=== PATIENT | female | born 2000 | race Two or more races ===

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

== ENCOUNTER 2018-01-12 18:19 | Emergency (ER) | payer MEDICAID | END 2018-01-12 20:16 | disposition left against medical advice (07) | LOC: ER 18:19 | DX: Z53.21 Procedure and treatment not carried out due to patient leaving prior to being seen by health care provider (principal) ==

== ENCOUNTER 2018-06-10 17:32 | Emergency (ER) | payer MEDICAID ==
[2018-06-10 17:39] VITALS: BP 117/71
--- NOTE | 2018-06-10 19:56 | ER Document Report ---
ED GI Bleed / Rectal Pain - General Chief Complaint: Hemorrhoids Stated Complaint: ANAL BLEEDING, PAIN Time Seen by Provider: 06/10/18 19:28 Mode of Arrival: Ambulatory Information source: Patient Notes: 17-year-old female presented to ED for complaint of rectal pain and hemorrhoids. She states she has had hemorrhoids since she was a senior in high school and she came while she was and they told her that they could not do anything about her hemorrhoids while she was . She states that the last couple days her hemorrhoid is gotten worse and she had some blood when she went to the bathroom. Patient is also on her period. She states she does have hard round balls of stools at times. She is alert and oriented respirations regular and unlabored speaking on full sentences and walks with a even steady gait. Patient states she smokes 3-4 times a day and when I asked her to 73 or 4 cigarettes that she states no she does not smoke cigarettes she smokes pot. TRAVEL OUTSIDE OF THE [place] IN LAST 30 DAYS: No - HPI Patient complains to provider of: Hemorrhoids, Rectal pain Onset: Other - Since she was in high school Timing/Duration: Worse Quality of pain: Sharp Severity of symptoms: Moderate Pain Level: 4 Rectal bleeding: Bright red blood on paper - She is on her menstrual cycle Associated symptoms: None Exacerbated by: Other - Bowel movement Relieved by: Denies Similar symptoms previously: Yes Recently seen / treated by doctor: No - Related Data Allergies/Adverse Reactions: No Known Allergies Allergy (Verified 01/12/18 18:28) Past Medical History - General Information source: Patient - Social History Smoking Status: Never Smoker Chew tobacco use (# tins/day): No Frequency of alcohol use: None Drug Abuse: Marijuana - 3 or 4 times a day Occupation: none Lives with: Family - Brother and [id number] Family History: Reviewed & Not Pertinent Patient has suicidal ideation: No Patient has homicidal ideation: No - Past Medical History Cardiac Medical History: Reports: None Pulmonary Medical History: Reports: None EENT Medical History: Reports: None Neurological Medical History: Reports: None Endocrine Medical History: Reports: None Renal/ Medical History: Reports: None Malignancy Medical History: Reports: None GI Medical History: Reports: None Musculoskeletal Medical History: Reports None Skin Medical History: Reports None Psychiatric Medical History: Reports: None Traumatic Medical History: Reports: None Infectious Medical History: Reports: None Surgical Hx: Negative Past Surgical History: Reports: None - Immunizations Immunizations up to date: Yes Review of Systems - Review of Systems Constitutional: No symptoms reported EENT: No symptoms reported Cardiovascular: No symptoms reported Respiratory: No symptoms reported Gastrointestinal: Constipation, Other - Rectal pain and hemorrhoids Genitourinary: No symptoms reported Female Genitourinary: No symptoms reported Musculoskeletal: No symptoms reported Skin: No symptoms reported Hematologic/Lymphatic: No symptoms reported Neurological/Psychological: No symptoms reported -: Yes All other systems reviewed and negative Physical Exam - Vital signs Vitals: Temp Pulse Resp BP Pulse Ox 98.3 F 58 L 16 117/71 98 06/10/18 17:38 06/10/18 17:38 06/10/18 17:38 06/10/18 17:38 06/10/18 17:38 Interpretation: Normal - General General appearance: Appears well, Alert - HEENT Head: Normocephalic, Atraumatic Eyes: Normal Pupils: PERRL - Respiratory Respiratory status: No respiratory distress Chest status: Nontender Breath sounds: Normal Chest palpation: Normal - Cardiovascular Rhythm: Regular Heart sounds: Normal auscultation Murmur: No - Abdominal Inspection: Normal Distension: No distension Bowel sounds: Normal Tenderness: Nontender Organomegaly: No organomegaly - Rectal Tenderness: Yes Hemorrhoids: External - Very small external hemorrhoid Notes: Patient is on her menstrual cycle - Back Back: Normal, Nontender - Extremities General upper extremity: Normal inspection, Nontender, Normal color, Normal ROM , Normal temperature General lower extremity: Normal inspection, Nontender, Normal color, Normal ROM , Normal temperature, Normal weight bearing. No: Kelsey's sign - Neurological Neuro grossly intact: Yes Cognition: Normal Orientation: AAOx4 [place] Coma Scale Eye Opening: Spontaneous [place] Coma Scale Verbal: Oriented Alexia Coma Scale Motor: Obeys Commands Eden Coma Scale Total: 15 Speech: Normal Motor strength normal: LUE, RUE, LLE, RLE Sensory: Normal - Psychological Associated symptoms: Normal affect, Normal mood - Skin Skin Temperature: Warm Skin Moisture: Dry Skin Color: Normal Course - Re-evaluation Re-evalutation: 06/10/18 20:15 Patient states she has a hard round balls for stools. She does have an external hemorrhoid that is very small no internal hemorrhoids palpated. No blood noted on the internal rectum but there is blood externally but the patient is on her menstrual cycle. Patient instructed on use of stool softeners and laxatives to prevent hard stools and to follow-up with her primary doctor and a rug dry room attendant. - Vital Signs Vital signs: Temp Pulse Resp BP Pulse Ox 98.3 F 58 L 16 117/71 98 06/10/18 17:38 06/10/18 17:38 06/10/18 17:38 06/10/18 17:38 06/10/18 17:38 Discharge - Discharge Clinical Impression: External hemorrhoid Condition: Stable Disposition: HOME, SELF-CARE Instructions: Family Physicians / Practices Additional Instructions: Hemorrhoids You have hemorrhoids. These are formed by enlargement of veins around the anus. The cause is increased pressure in the veins, from or straining at bowel movements. Hemorrhoids often cause itching and bleeding with bowel movements. When a hemorrhoid becomes clotted, severe pain and swelling result. Soothing creams and suppositories are often prescribed. Warm sitz-baths may also decrease pain, swelling, and itching. Eat a high-fiber diet. Stool softeners such as Metamucil will help. Keep the area very clean. Medicated cleansing pads (such as Tucks) are useful after bowel movements. A hose-mounted shower unit (like a shower massager at low water pressure) can be used to clean around tender hemorrhoid tags. You should call the doctor or return if you develop fever, increasing pain , or an enlarging mass around the anus, or if you simply fail to improve with treatment. CONSTIPATION: Constipation is a common problem. It is especially likely as you get older. Constipation is a common cause of abdominal pain, but sometimes causes no symptoms at all. Causes of constipation include certain medications, dehydration, diets, inactivity, and low-fiber intake. Rarely, it can be a symptom of underlying disease. The physician has evaluated you for this. Avoid constipation by eating a diet high in fiber, fruits, and vegetables. Drink plenty of liquids. Get regular exercise. If possible, avoid constipating medicines like narcotic pain medication. Some vitamin tablets can cause constipation. Stool softeners may be needed for difficult cases. An excellent stool softener is Konsyl which is available at [employer], and [employer] drug [employer]. Just add a teaspoon to a glass of pineapple or orange juice daily or twice a day if needed. Laxatives are useful for occasional constipation. You should use them only when necessary. Too-frequent use can make your bowels dependent on them. Some over the counter laxatives available without prescription are: Milk of Magnesia, 1-2 tablespoons twice a day Dulcolax, 5 mg pill or 10 mg suppository. Citrate of Magnesia, 4-5 ounces a day for a day or two For acute constipation, Fleet's Enemas and Dulcolax suppositories are helpful. Chronic, care home use of laxatives or enemas is not a good idea. Your bowel may become dependant on them. You do not need to have a bowel movement every day. Many people do fine with a bowel movement every three or four days. You should call your doctor or return for re-evaluation if you pass blood in the stool, or if you develop fever or increasing abdominal pain. BULK LAXATIVES: Bulk laxatives make the stool softer and bulkier. They're useful for preventing constipation. You can choose between psyllium, methylcellulose, and polycarbophil. They are available without a prescription. Psyllium brand names include Konsyl, Metamucil, Perdiem, Effer-Syllium and Hydrocil. It's available as powder, flavored drink powder, or chewable. The usual dose of psyllium powder is one heaping teaspoon in water each morning, increasing to twice a day if needed. [place] juice can disguise the slightly grainy texture. Methylcellulose is marketed as Citrucel and other brands. The average dose is two grams in a cup of water one to three times a day. Polycarbophil is marketed as Fiber-Con. Take two tablets with a cup of water one to three times a day. LAXATIVE: A laxative agent has been prescribed for your condition. This should result in passage of stool within 12 hours. Some mild intestinal cramping is common as the hard stool begins to move. You may have loose or runny stools for a short time. Contact your doctor if there is severe cramping, vomiting, or passage of blood. Return for further care if this medicine fails to improve your condition. FOLLOW-UP CARE: If you have been referred to a physician for follow-up care, call the physician s office for an appointment as you were instructed or within the next two days. If you experience worsening or a significant change in your symptoms, notify the physician immediately or return to the Emergency Department at any time for re-evaluation. Forms: Smoking Cessation Education
== END 2018-06-10 20:10 | disposition home or self-care (01) ==
LOC: ER 17:32
DX: K64.4 Residual hemorrhoidal skin tags (principal); K62.5 Hemorrhage of anus and rectum
CPT/HCPCS: 99283

== ENCOUNTER 2018-11-24 22:31 | Emergency (ER) | payer MEDICAID ==
--- NOTE | 2018-11-25 00:58 | ER Document Report ---
HPI - HPI Time Seen by Provider: 11/25/18 00:57 Pain Level: 4 Notes: Patient is a 18-year-old female presented to the emergency department chief complaint of foreign body in her vagina. Patient reports she believes there is a tampon that is been present for approximately 24 hours. Patient states she had sexual intercourse and thinks that she left a tampon in. - REPRODUCTIVE Reproductive: DENIES: : Past Medical History - General Information source: Patient - Social History Smoking Status: Never Smoker Family History: Reviewed & Not Pertinent - Medical History Medical History: Negative Renal/ Medical History: Denies: Hx Peritoneal Dialysis Surgical Hx: Negative - Immunizations Immunizations up to date: Yes Vertical Provider Document - CONSTITUTIONAL Notes: PHYSICAL EXAMINATION: GENERAL: Well-appearing, well-nourished and in no acute distress. HEAD: Atraumatic, normocephalic. EYES: Pupils equal round extraocular movements intact, conjunctiva are normal. ENT: Nares patent NECK: Normal range of motion LUNGS: No respiratory distress Genitourinary: Speculum exam was clear, no evidence of foreign body in the vagina. Musculoskeletal: Normal range of motion NEUROLOGICAL: Normal speech, normal gait. PSYCH: Normal mood, normal affect. SKIN: Warm, Dry, normal turgor, no rashes or lesions noted. - INFECTION CONTROL TRAVEL OUTSIDE OF THE [place] IN LAST 30 DAYS: No Course - Re-evaluation Re-evalutation: No evidence of vaginal foreign body in the vagina on exam. No abnormal discharge and no cervical motion or adnexal tenderness. - Vital Signs Vital signs: Temp Pulse Resp BP Pulse Ox 98.0 F 92 18 123/71 100 11/24/18 22:56 11/24/18 22:56 11/24/18 22:56 11/24/18 22:56 11/24/18 22:56 Discharge - Discharge Clinical Impression: Normal exam, Sensation of vaginal foreign body Condition: Stable Disposition: HOME, SELF-CARE Additional Instructions: There was no tampon noted in your vagina on the speculum exam. With your PRISON LIBRARIAN as soon as possible to have new control placed as you stated that when you were trying to remove the tampon you accidentally took out your IUD. Please use a back-up method in the meanwhile. Return to the emergency department with any new or worsening symptoms.
[2018-11-25 02:27] VITALS: BP 122/68
== END 2018-11-25 01:40 | disposition home or self-care (01) ==
LOC: ER 22:31
DX: R44.8 Other symptoms and signs involving general sensations and perceptions (principal)
CPT/HCPCS: 99283

== ENCOUNTER 2019-05-11 22:27 | Emergency (ER) | payer MEDICAID ==
[2019-05-11 22:36] VITALS: BP 117/64
[2019-05-11 23:08] LABS: ABSOLUTE EOSINOPHILS # (AUTO) 0.1 10^3/uL (0.0-0.6); ABSOLUTE LYMPHOCYTES (AUTO) 1.5 10^3/uL (0.5-4.7); ABSOLUTE MONOCYTES (AUTO) 0.6 10^3/uL (0.1-1.4); ABSOLUTE NEUT (AUTO) 7.4 10^3/uL (1.7-8.2); BASOPHILS % (AUTO) 0.3 % (0-2); EOSINOPHILS % (AUTO) 1.5 % (0-6); HEMATOCRIT 39.7 % (36.0-47.0); LYMPHOCYTES % (AUTO) 15.8 % (13-45); MEAN CORPUSCULAR HGB CONC 35.3 g/dL (32.0-36.0); MEAN CORPUSCULAR VOLUME 91 fl (80-97); MONOCYTES % (AUTO) 6.2 % (3-13); PLATELET COUNT 258 10^3/uL (150-450); RED BLOOD COUNT 4.37 10^6/uL (3.72-5.28); RED CELL DISTRIBUTION WIDTH 12.1 % (11.5-14.0); SEGMENTED NEUTROPHILS % (AUTO) 76.2 % (42-78); TOTAL CELLS COUNTED % (AUTO) 100 %; WHITE BLOOD COUNT 9.7 10^3/uL (4.0-10.5)
[2019-05-11 23:09] LABS: APPEARANCE,URINE CLEAR; BILIRUBIN,URINE NEGATIVE (NEGATIVE); COLOR,URINE YELLOW; GLUCOSE, URINE NEGATIVE (NEGATIVE); KETONES,URINE NEGATIVE (NEGATIVE); LEUKOCYTE ESTERASE,URINE NEGATIVE (NEGATIVE); NITRITE,URINE NEGATIVE (NEGATIVE); PROTEIN,URINE NEGATIVE (NEGATIVE); URINE SPECIFIC GRAVITY 1.012; UROBILINOGEN,URINE NEGATIVE mg/dL (<2.0)
[2019-05-12 00:14] LABS: ALBUMIN 3.7 g/dL (3.5-5.0); ALKALINE PHOSPHATASE 76 U/L (38-126); ANION GAP 9 (5-19); ASPARTATE AMINO TRANSFERASE 16 U/L (14-36); BILIRUBIN,DIRECT 0.1 mg/dL (0.0-0.4); BILIRUBIN,TOTAL 0.6 mg/dL (0.2-1.3); BLOOD UREA NITROGEN 8 mg/dL (7-20); CALCIUM 9.9 mg/dL (8.4-10.2); CARBON DIOXIDE 25 mmol/L (22-30); CHLORIDE 101 mmol/L (98-107); GLUCOSE 95 mg/dL (75-110); POTASSIUM 4.3 mmol/L (3.6-5.0); TOTAL PROTEIN 7.1 g/dL (6.3-8.2)
--- NOTE | 2019-05-12 00:21 | ER Document Report ---
ED General - General Chief Complaint: Abdominal Pain Stated Complaint: ABDOMINAL PAIN/BACK PAIN/ RELATED Time Seen by Provider: 05/11/19 23:51 TRAVEL OUTSIDE OF THE [place] IN LAST 30 DAYS: No - HPI Notes: Ms. Lovett is a 18-year-old female 2 para 1 at approximately 13 weeks EGA presenting now with a 24-hour history of intermittent dull discomfort in suprapubic area radiating into the right flank. She is been nauseated but has had no vomiting. She denies any vaginal discharge or bleeding. She denies any uterine contractions. She has had some urinary frequency but no burning with urination. She denies fever or chills. She denies any prior history of surgery. No other significant medical problems. Feels that her symptoms are improving. She is taking in oral fluids well at this time. - Related Data Allergies/Adverse Reactions: No Known Allergies Allergy (Verified 01/12/18 18:28) Past Medical History - General Information source: Patient, Relative - Social History Smoking Status: Former Smoker Frequency of alcohol use: None Drug Abuse: None Family History: Reviewed & Not Pertinent Patient has suicidal ideation: No Patient has homicidal ideation: No Renal/ Medical History: Denies: Hx Peritoneal Dialysis - Immunizations Immunizations up to date: Yes Review of Systems - Review of Systems Notes: Constitutional: Negative for fever. HENT: Negative for sore throat. Eyes: Negative for visual changes. Cardiovascular: Negative for chest pain. Respiratory: Negative for shortness of breath. Gastrointestinal: As per HPI. Genitourinary: As per HPI. Musculoskeletal: Negative for back pain. Skin: Negative for rash. Neurological: Negative for headaches, weakness or numbness. 10 point ROS negative except as marked above and in HPI. Physical Exam - Vital signs Vitals: Temp Pulse Resp BP Pulse Ox 99.4 F 110 H 20 117/64 98 05/11/19 22:35 05/11/19 22:35 05/11/19 22:35 05/11/19 22:35 05/11/19 22:35 - Notes Notes: GENERAL: Slender female approximately stated age appearing in no acute distress. SKIN: Good turgor no rashes. HEAD: Normocephalic atraumatic. EYES: PERRLA. Conjunctivae and sclerae clear. EARS: CANALS AND TMS CLEAR. NOSE: CLEAR. MOUTH: Moist mucosa. Good dentition. No stridor or edema. No drooling. NECK: Supple. No masses or thyromegaly. No adenopathy. Carotids 2+ without bruits. No JVD. BACK: Symmetrical without tenderness. CHEST: Respirations unlabored. Breath sounds clear and symmetrical. HEART: Regular rhythm. No murmur gallop or rub. ABDOMEN: Soft nontender without masses, organomegaly or rebound. Bowel sounds normally active. No bruits. GENITALIA: Deferred. EXTREMITIES: No edema. No calf tenderness. Cap refill less than 1.5 seconds. Dorsalis pedis and posterior tibial pulses 3+ and symmetrical. NEUROLOGICAL: GCS 15. Alert and oriented x3. Normal gait. Fluent speech. Cranial nerves II through XII intact. Sensorimotor and cerebellar normal. Normal tone. Course - Re-evaluation Re-evalutation: 05/12/19 02:04 Urinalysis is unremarkable. Chemistry profile unremarkable. Right upper quadr ant ultrasound did not show any gallstones and obstetrical ultrasound showed IUP at 15 weeks EGA with no other significant abnormalities appreciated. Reevaluation of the patient this time shows she is relatively asymptomatic. Upon further discussion I think she may be having some gastritis and reflux. I am going to give her a dose of Reglan here and write her prescription for same. She is instructed take Tylenol as needed and return here for new or worsening symptoms and otherwise follow-up with her obstetrical provider within next 2 to 3 days. - Vital Signs Vital signs: Temp Pulse Resp BP Pulse Ox 99.4 F 110 H 20 117/64 98 05/11/19 22:35 05/11/19 22:35 05/11/19 22:35 05/11/19 22:35 05/11/19 22:35 - Laboratory Result Diagrams: 05/11/19 22:50 05/11/19 22:50 Laboratory results interpreted by me: 05/11/19 22:50 Sodium 134.6 L Beta HCG, Quant 79990.00 H - Diagnostic Test Radiology reviewed: Reports reviewed Radiology results interpreted by me: 05/12/19 02:04 Radiology reports reviewed. Patient has obstetrical ultrasound showing IUP at about 15 weeks EGA with no other abnormalities appreciated. Gallbladder ultrasound did not show any stones or other significant changes. Discharge - Discharge Clinical Impression: Intrauterine at 15 weeks EGA Abdominal pain Qualifiers: Abdominal location: unspecified location Qualified Code(s): R10.9 - Unspecified abdominal pain Gastroesophageal reflux Qualifiers: Esophagitis presence: esophagitis presence not specified Qualified Code(s): K21.9 - Gastro-esophageal reflux disease without esophagitis Condition: Stable Disposition: HOME, SELF-CARE Instructions: Abdominal Pain ([facility]) Additional Instructions: Follow-up within the next 2 to 3 days with your obstetrical provider. Return here as needed for new or worsening symptoms. Take prescribed medication as directed. Tylenol as needed. Prescriptions: Metoclopramide HCl [Reglan] 10 mg PO QID 7 Days #28 tablet
--- NOTE | 2019-05-12 01:43 | RADIOLOGY REPORT (SQ) ---
EXAM DESCRIPTION: US ABDOMEN LIMITED COMPLETED DATE/TME: 05/12/2019 00:11 CLINICAL HISTORY: 18 years, Female, r/o cholelithiasis COMPARISON: None. TECHNIQUE: Limited abdominal ultrasound LIMITATIONS: None. FINDINGS: Echogenic appearance to the liver consistent with fatty infiltrative change. No gallstones or gallbladder wall thickening. Negative sonographic Metzger sign. The CBD measures 2.5 mm. Visualized pancreas, abdominal aorta, inferior vena cava, are unremarkable. Right kidney measures 10 cm in length. Question punctate nonobstructing right renal calculus. No ascites IMPRESSION: Fatty infiltrative change to the liver. Questionable punctate nonobstructing right renal calculus copyright 2010 [email or web address]- All Rights Reserved
--- NOTE | 2019-05-12 01:48 | RADIOLOGY REPORT (SQ) ---
CLINICAL HISTORY: pelvic/abd pain 13 weeks EGA COMPARISON: None. TECHNIQUE: US LIMITED on 05/12/2019 12:14 AM AIR CONDITIONING SPECIALIST FINDINGS: There is a single live intrauterine gestation. Cervix measures 3.3 cm and is closed. The fetus is in variable orientation. heart rate is 160 bpm. Placenta is posterior and is unremarkable. Biparietal diameter measures 3.2 cm corresponding to 15 weeks six days. Head circumference measures 11.7 cm corresponding to 15 weeks five days. Abdominal circumference measures 8.7 cm corresponding to 15 weeks zero days. Femur length measures 1.8 cm corresponding to 15 weeks three days. IMPRESSION: Unremarkable study.
[2019-05-12] MEDS ORDERED: METOCLOPRAMIDE HCL 10 MG TABLET PO ONE (02:03)
== END 2019-05-12 02:30 | disposition home or self-care (01) ==
LOC: ER 22:27
DX: O99.612 Diseases of the digestive system complicating pregnancy, second trimester (principal); K21.9 Gastro-esophageal reflux disease without esophagitis; O26.892 Other specified pregnancy related conditions, second trimester; R10.9 Unspecified abdominal pain; R35.0 Frequency of micturition; M54.9 Dorsalgia, unspecified; Z3A.15 15 weeks gestation of pregnancy; Z87.891 Personal history of nicotine dependence
CPT/HCPCS: 36415; 84702; 83690; 85025; 80053; 81001; 76705; 76815; J3490; 99284

== ENCOUNTER 2019-11-02 23:09 | Inpatient (IN) | payer MEDICAID ==
[2019-11-02 23:46] LABS: APPEARANCE,URINE CLEAR; BILIRUBIN,URINE NEGATIVE (NEGATIVE); COLOR,URINE STRAW; GLUCOSE, URINE NEGATIVE (NEGATIVE); KETONES,URINE NEGATIVE (NEGATIVE); LEUKOCYTE ESTERASE,URINE NEGATIVE (NEGATIVE); NITRITE,URINE NEGATIVE (NEGATIVE); PROTEIN,URINE NEGATIVE (NEGATIVE); URINE SPECIFIC GRAVITY 1.008; UROBILINOGEN,URINE NEGATIVE mg/dL (<2.0)
[2019-11-03] MEDS ORDERED: RINGERS SOLUTION,LACTATED 1,000 ML IV PRN (00:06)
[2019-11-03] MEDS ORDERED: RINGERS SOLUTION,LACTATED 1,000 ML IV ONE (00:06)
[2019-11-03] MEDS ORDERED: PENICILLIN G POTASSIUM 5,000,000 UNIT in DEXTROSE 5%-WATER 100 ML IV ONE (00:06)
[2019-11-03] MEDS ORDERED: PENICILLIN G-K 5 MILLION UNIT VIAL ONE ×2 (00:13→03:49)
[2019-11-03 00:23] LABS: URINE AMPHETAMINES SCREEN NEGATIVE; URINE BARBITURATES SCREEN NEGATIVE; URINE BENZODIAZEPINES SCREEN NEGATIVE; URINE COCAINE SCREEN NEGATIVE; URINE MARIJUANA (THC) SCREEN NEGATIVE; URINE METHADONE SCREEN NEGATIVE; URINE PHENCYCLIDINE SCREEN NEGATIVE
[2019-11-03 00:40] LABS: ABSOLUTE EOSINOPHILS # (AUTO) 0.1 10^3/uL (0.0-0.6); ABSOLUTE LYMPHOCYTES (AUTO) 2.5 10^3/uL (0.5-4.7); ABSOLUTE MONOCYTES (AUTO) 0.8 10^3/uL (0.1-1.4); ABSOLUTE NEUT (AUTO) 6.7 10^3/uL (1.7-8.2); BASOPHILS % (AUTO) 0.2 % (0-2); EOSINOPHILS % (AUTO) 0.5 % (0-6); HEMATOCRIT 33.5 % (36.0-47.0); HEMOGLOBIN 11.6 g/dL (12.0-15.5); LYMPHOCYTES % (AUTO) 25.2 % (13-45); MEAN CORPUSCULAR HEMOGLOBIN 30.1 pg (27.0-33.4); MEAN CORPUSCULAR HGB CONC 34.6 g/dL (32.0-36.0); MEAN CORPUSCULAR VOLUME 87 fl (80-97); MONOCYTES % (AUTO) 7.5 % (3-13); PLATELET COUNT 285 10^3/uL (150-450); RED BLOOD COUNT 3.86 10^6/uL (3.72-5.28); RED CELL DISTRIBUTION WIDTH 13.7 % (11.5-14.0); SEGMENTED NEUTROPHILS % (AUTO) 66.6 % (42-78); TOTAL CELLS COUNTED % (AUTO) 100 %; WHITE BLOOD COUNT 10.1 10^3/uL (4.0-10.5)
[2019-11-03] MEDS ORDERED: LIDOCAINE 1% INJ-PF (10 MG/ML) 30 ML SDV ONE (01:19)
[2019-11-03] MEDS ORDERED: MISOPROSTOL 0.2 MG TABLET ONE (01:19)
[2019-11-03] MEDS ORDERED: OXYTOCIN/NORMAL SALINE 20 UNIT/1,000 ML RTUINJ ONE (01:20)
--- NOTE | 2019-11-03 03:33 | Admission Physical ---
Datetime Report Generated by CPN: 11/03/2019 03:33 CURRENT ADMISSION Chief Complaint: Uterine Contractions Indication for Induction: Indicated by Testing Admit Impression : Term, Intrauterine ; No Active Labor; Induction of Labor Admit Plan: Admit to Unit; Initiate Labor Induction Protocol ALLERGIES Medication Allergies: No Medication Allergies: No Known Allergies (11/03/2019) Latex: No Latex Allergies OBSTETRICAL HISTORY EDC: 11/02/2019 00:00 : 2 Para: 1 Term: 1 : 0 SAB: 0 IAB: 0 Ectopic: 0 Livin Cesareans: 0 VBACs: 0 Multiple Births: 0 Gestational Diabetes: No Rh Sensitization: No Incompetent Cervix: No JUSTIN: No Infertility: No ART Treatment: No Uterine Anomaly: No IUGR: No Hx Previous C/S: No Macrosomia: No Hx Loss/Stillborn: No PIH: No Hx : No Placenta Previa/Abruption: No Depression/PP Depression: Yes PTL/PROM: No Post Hemorrhage: No Current Procedures: Ultrasound Obstetrical History Comments: G1: 2018, , induced NRFHTs @ 41 weeks G2: current SEE RECORDS Marijuana : No Cocaine: No Other Illicit Drugs: No MEDICAL HISTORY Diabetes: No Blood Transfusion: No Pulmonary Disease (Asthma, TB): No Breast Disease: No Hypertension: No Pairer Substandard Surgery: No Heart Disease: No Hosp/Surgery: Yes Autoimmune Disorder: No Anesthetic Complications: No Kidney Disease: No Abnormal Pap Smear: No Neuro/Epilepsy: No Psychiatric Disorders: No Other Medical Diseases: No Hepatitis/Liver Disease: No Significant Family History: No Varicosities/Phlebitis: No Trauma/Violence : No Thyroid Dysfunction: No INFECTIOUS HISTORY Gonorrhea: No Genital Herpes: No Chlamydia: Yes Tuberculosis: No Syphilis: No Hepatitis: No HIV/AIDS Exposure: No Rash or Viral Illness: No HPV: No Infectious History Comments: 2017 chlamydia PHYSICAL EXAM General: Normal HEENT: Normal Neurologic: Normal Thyroid: Normal Heart: Normal Lungs: Normal Breast: Normal Back: Normal Abdomen: Normal Genitourinary Exam: Normal Extremities: Normal DTRs: Normal Pelvic Type: Adequate Vital Signs: Reviewed; Within Normal Limits VAGINAL EXAM Dilatation: 2 Effacement: 50 Station: -2 MEMBRANES Pooling: Negative Membranes: Intact FETUS A EGA: 40.1 Monitoring: External US FHR- Baseline: 150 Variability: Moderate 6-25bpm Accelerations: 15X15 Decelerations: None FHR Category: Category I Estimated Weight (gm): 3500 Presentation: Vertex Admit Comment: patient arrived with FHTs in 180s for > 1 hour. decision to admit sec to EGA of >40 wks and testing PLANS FOR LABOR AND DELIVERY Labor and Delivery: None Pain Management: Natural; Epidural Feeding Preference: Breast Benefit of Breast Feed Discussed: Yes Circumcision: N/A INFORMED CONSENT Signature: with User ID: [email or web address]
[2019-11-03] MEDS: PENICILLIN G POTASSIUM 2,500,000 UNIT in DEXTROSE 5%-WATER 50 ML IV SCH (04:13)
[2019-11-03] MEDS ORDERED: ACETAMINOPHEN 325 MG TABLET PO PRN (05:42)
[2019-11-03] MEDS ORDERED: NA PHOS,M-B/NA PHOS,DI-BA (ADULT) 133 ML ENEMA PR PRN (05:42)
[2019-11-03] MEDS ORDERED: DIPH/PERTUSS(ACELL)/TETANUS VAC/PF 0.5 ML SYR (>=10YO) IM PRN ×2 (05:42→09:30)
[2019-11-03] MEDS ORDERED: BENZOCAINE/MENTHOL AEROSOL SPRAY 56 ML TOP PRN (05:42)
[2019-11-03] MEDS ORDERED: GLYCERIN/WITCH HAZEL LEAF 1 EACH MED..WIPE TP PRN (05:42)
[2019-11-03] MEDS ORDERED: PROMETHAZINE HCL INJ 25 MG/1 ML VIAL IV PRN ×2 (05:42→09:30)
[2019-11-03] MEDS ORDERED: ACETAMINOPHEN 650 MG SUPP.RECT PR PRN (05:42)
[2019-11-03] MEDS ORDERED: MAGNESIUM HYDROXIDE SUSP 30 ML UDCUP PO PRN (05:42)
[2019-11-03] MEDS ORDERED: MEASLES,MUMPS&RUBELLA VACC/PF 0.5 ML VIAL SUBCUT PRN ×2 (05:42→09:30)
[2019-11-03] MEDS ORDERED: OXYTOCIN/NORMAL SALINE 20 UNIT/1,000 ML RTUINJ IV PRN (05:42)
[2019-11-03] MEDS ORDERED: ZOLPIDEM TARTRATE 5 MG TABLET PO PRN ×2 (05:42→09:30)
[2019-11-03] MEDS ORDERED: PROMETHAZINE HCL 25 MG TABLET PO PRN (05:42)
[2019-11-03] MEDS ORDERED: DIPHENHYDRAMINE HCL 25 MG CAPSULE PO PRN (05:42)
[2019-11-03] MEDS ORDERED: PSEUDOEPHEDRINE HCL 30 MG TABLET PO PRN (05:42)
[2019-11-03] MEDS ORDERED: ACETAMINOPHEN WITH CODEINE #3 TABLET PO PRN ×2 (05:42)
[2019-11-03] MEDS ORDERED: PROMETHAZINE HCL 25 MG SUPP.RECT PR PRN (05:42)
[2019-11-03] MEDS ORDERED: DIBUCAINE 1% OINTMENT 28 GM TP PRN (05:42)
--- NOTE | 2019-11-03 05:50 | Warning Signs in Babies ---
VOD Warning Signs Datetime Report Generated by [facility]: 11/03/2019 05:50 VOD#608 -Warning Signs in Babies: Needs to be viewed. (11/02/2019 23:42:Annia Rush RN)
[2019-11-03] MEDS ORDERED: IBUPROFEN 800 MG TABLET ONE (05:51)
[2019-11-03] MEDS: IBUPROFEN 800 MG TABLET PO SCH ×3 (05:53→21:17)
[2019-11-03] MEDS ORDERED: BENZOCAINE/MENTHOL AEROSOL SPRAY 56 ML ONE (06:00)
--- NOTE | 2019-11-03 06:19 | Delivery Summary ---
Del Sum A-C Datetime Report Generated by CPN: 11/03/2019 06:18 DELIVERY PERSONNEL DELIVERY PERSONNEL: [id number] Delivery Doctor:: Griselda Rowan MD Labor and Delivery Nurse:: Annia Rush RNgrocery clerk selling Nurse:: Shaylee Benitez RN Nursery Nurse:: Shanique House RN Nursery Nurse:: DEJON Severino/[employer] MEMBER: Flower Ba, ST MATERNAL INFORMATION Delivery Anesthesia: None Medications After Delivery: Pitocin Bolus-Please Comment Meds After Delivery Comment: pitocin 20 units Estimated Blood Loss (ml): 100 Maternal Complications: None LABOR SUMMARY EDC: 11/02/2019 00:00 No. Babies in Womb: 1 Attempted: No Labor Anesthesia: None LABOR INFORMATION Reason for Induction: Not Applicable Onset of Labor: 11/03/2019 02:52 Complete Dilatation: 11/03/2019 05:11 Oxytocin: Augmentation Group B Beta Strep: Positive Antibiotics # of Doses: 2 Antibiotics Time of Last Dose: 0417 Name of Antibiotic Given: penicillin G Steroids Given: None Reason Steroids Not Administered: Not Applicable MEMBRANES Membranes Rupture Method: Artificial Rupture of Membranes: 11/03/2019 04:56 Length of Rupture (hr): 0.52 Amniotic Fluid Color: Clear Amniotic Fluid Amount: Moderate Amniotic Fluid Odor: Normal STAGES OF LABOR Stage 1 hr: 2 Stage 1 min: 19 Stage 2 hr: 0 Stage 2 min: 16 Stage 3 hr: 0 Stage 3 min: 4 Total Time in Labor hr: 2 Total Time in Labor min: 39 VAGINAL DELIVERY Episiotomy: None Laceration #1: None Laceration Extension #1: N/A Laceration Repair: Not Applicable Sponge Count Correct: Yes Sharps Count Correct: Yes CSECTION DELIVERY Primary Indication: N/A Secondary Indication: N/A CSection Incidence: N/A Labor: N/A Elective: N/A CSection Incision: N/A BABY A INFORMATION Delivery Date/Time: 11/03/2019 05:27 Method of Delivery: Vaginal Born in Route : No : N/A Forceps: N/A Vacuum Extraction: N/A Shoulder Dystocia : No PRESENTATION/POSITION BABY A Presentation: Cephalic Cephalic Presentation: Vertex Vertex Position: Left Occipital Anterior Breech Presentation: N/A PLACENTA INFORMATION BABY A Placenta Delivery Time : 11/03/2019 05:31 Placenta Method of Delivery: Spontaneous Placenta Status: Delivered SCORES BABY A Heart Rate 1 min: >100 bpm Resp Effort 1 min: Good Cry Reflex Irritability 1 min: Cough or Sneeze or Pulls Away Muscle Tone 1 min: Active Motion Color 1 min: Blue/Pale Resuscitation Effort 1 min: Tactile Stimulation SCORE 1 MIN: 8 Heart Rate 5 min: >100 bpm Resp Effort 5 min: Good Cry Reflex Irritability 5 min: Cough or Sneeze or Pulls Away Muscle Tone 5 min: Active Motion Color 5 min: Body [place], Extremities Blue Resuscitation Effort 5 min: Tactile Stimulation SCORE 5 MIN: 9 INFANT INFORMATION BABY A Gestational Age at Delivery: 40.1 Gestational Status: Full Term- 39- 40.6 Weeks Infant Outcome : Liveborn Infant Condition : Stable Sex: Female IDENTIFICATION BABY A Infant Verification Date/Time: 11/03/2019 06:05 ID Band Number: [id number] Mother's Name Verified: Yes Infant RN Verifying : Pojoa Benitez _ B. Ring WEIGHT/LENGTH BABY A Birthweight (gm): 3765 Infant Weight (lb): 8 Weight (oz): 5 Length (in): 20.25 Infant Length (cm): 51.44 CORD INFORMATION BABY A No. Cord Vessels: 3 Nuchal Cord : N/A Cord Blood Taken: Yes-For Eval (Mom's Blood Type - or O+) Infant Suction: Mouth; Nose ASSESSMENT BABY A Infant Complications: Multiple Late Decels; Multiple Variable Decels Physical Findings at Delivery: Molding of the Head Physical Findings- Other: See full nursery manugrapher Respirations: Appears Normal Skin to Skin: Yes Pulmonologist/Intensivist/ALS Called : No Care By: Pooja House RN _ Ac Bishop RN Transferred To: Remains with Mother BABY B INFORMATION : N/A SIGNATURES Signature: Electronically signed by Griselda Rowan MD ([facility]) on 11/03/2019 at 05:38 with User ID: [email or web address]
[2019-11-03] MEDS: SENNOSIDES/DOCUSATE 8.6-50 MG 1 EACH TABLET PO SCH (09:45)
[2019-11-03] MEDS: DOCUSATE SODIUM 100 MG CAPSULE PO SCH ×2 (09:45→17:42)
[2019-11-03] MEDS: FERROUS SULFATE 325 MG TABLET PO SCH ×2 (09:45→17:42)
[2019-11-03] MEDS: FAMOTIDINE 20 MG TABLET PO SCH ×2 (09:45→21:18)
[2019-11-03] MEDS: PRENATAL VITAMIN W DHA CAPSULE PO SCH (09:45)
[2019-11-04] MEDS: IBUPROFEN 800 MG TABLET PO SCH ×3 (05:40→21:39)
[2019-11-04 07:52] LABS: HEMATOCRIT 33.5 % (36.0-47.0); HEMOGLOBIN 11.5 g/dL (12.0-15.5); MEAN CORPUSCULAR HEMOGLOBIN 29.9 pg (27.0-33.4); MEAN CORPUSCULAR HGB CONC 34.2 g/dL (32.0-36.0); MEAN CORPUSCULAR VOLUME 88 fl (80-97); PLATELET COUNT 222 10^3/uL (150-450); RED BLOOD COUNT 3.83 10^6/uL (3.72-5.28); RED CELL DISTRIBUTION WIDTH 14.1 % (11.5-14.0); WHITE BLOOD COUNT 11.5 10^3/uL (4.0-10.5)
[2019-11-04] MEDS: SENNOSIDES/DOCUSATE 8.6-50 MG 1 EACH TABLET PO SCH (09:23)
[2019-11-04] MEDS: FERROUS SULFATE 325 MG TABLET PO SCH ×2 (09:23→17:14)
[2019-11-04] MEDS: PRENATAL VITAMIN W DHA CAPSULE PO SCH (09:23)
[2019-11-04] MEDS: DOCUSATE SODIUM 100 MG CAPSULE PO SCH ×2 (09:23→17:14)
[2019-11-04] MEDS: FAMOTIDINE 20 MG TABLET PO SCH ×2 (09:23→21:39)
--- NOTE | 2019-11-04 09:24 | PDOC PROGRESS REPORT ---
Subjective-OB Progress Note for:: 11/04/19 - PP Day #1, doing well, no complaints, , O+, Rubella Immune Physical Exam (OB) Vital Signs: Temp Pulse Resp BP Pulse Ox 97.5 F 69 16 127/65 H 100 11/04/19 08:00 11/04/19 08:00 11/04/19 08:00 11/04/19 08:00 11/04/19 08:00 Intake & Output 11/03/19 11/04/19 11/05/19 06:59 06:59 06:59 Weight 79.8 kg - General General Appearance: Appears well, Alert In distress: None - PIH/Pre-Eclampsia DTR's: 2 + Clonus: Negative Headache: Absent Epigastric Pain: No Visual Changes: No - Lochia Lochia Amount: Scant < 10 ml Lochia Color: Rubra/Red - Abdomen Description: Soft, Round Fundal Description: Firm, Midline Fundal Height: u/u - u/2 - Respiratory Respiratory Status: No respiratory distress - Abdominal Distension: No distension Tenderness: Nontender - Genitourinary Genitourinary Note: voiding - Extremities Upper extremity: Normal inspection Lower extremities: Normal inspection - Neurological Cognition: Normal Orientation: AAOx4 - Psychological Associated symptoms: Normal affect, Normal mood Objective-Diagnostic Laboratory: 11/04/19 07:30 11/04/19 07:30 WBC 11.5 H RBC 3.83 Hgb 11.5 L Hct 33.5 L MCV 88 MCH 29.9 MCHC 34.2 RDW 14.1 H Plt Count 222 Assessment and Plan(PN) - Assessment and Plan (1) Normal course Is this a current diagnosis for this admission?: Yes (2) Acute blood loss anemia Is this a current diagnosis for this admission?: Yes (3) Vaginal delivery Is this a current diagnosis for this admission?: Yes Plan:: Ambulation encouraged. Routine PP orders - Time Spent with Patient Time with patient: Less than 15 minutes Medications reviewed and adjusted accordingly: Yes - Disposition Anticipated Discharge: Home Within: within 24 hours
[2019-11-05] MEDS: IBUPROFEN 800 MG TABLET PO SCH ×2 (05:11→14:49)
[2019-11-05] MEDS: PENICILLIN G POTASSIUM 2,500,000 UNIT in DEXTROSE 5%-WATER 50 ML IV SCH (07:59)
[2019-11-05] MEDS: DOCUSATE SODIUM 100 MG CAPSULE PO SCH (09:58)
[2019-11-05] MEDS: FERROUS SULFATE 325 MG TABLET PO SCH (09:58)
[2019-11-05] MEDS: SENNOSIDES/DOCUSATE 8.6-50 MG 1 EACH TABLET PO SCH (09:58)
[2019-11-05] MEDS: FAMOTIDINE 20 MG TABLET PO SCH (09:58)
[2019-11-05] MEDS: PRENATAL VITAMIN W DHA CAPSULE PO SCH (09:58)
[2019-11-05 11:52] VITALS: BP 127/65
--- NOTE | 2019-11-05 12:38 | PDOC DISCHARGE SUMMARY ---
Impression - Admit/DC Date/PCP Admission Date/Primary Care Provider: 11/03/19 00:08 Discharge Date: 11/05/19 - Discharge Diagnosis (1) Vaginal delivery Is this a current diagnosis for this admission?: Yes (2) Acute blood loss anemia Is this a current diagnosis for this admission?: Yes (3) Normal course Is this a current diagnosis for this admission?: Yes - Assessment Summary: 19yo G2 now P2 s/p ppd2 stable and ready for discharge, understands warning s/s and when to seek immediate care - Additional Information Resuscitation Status: Full Code Discharge Diet: As Tolerated, Regular Discharge Activity: Activity As Tolerated, Balance Activity w/Rest, No Lifting/Push/Pulling, Pelvic Rest, No tub bath, Walk Frequently Prescriptions: Ibuprofen [Motrin 800 mg Tablet] 800 mg PO Q8HP PRN #20 tablet PRN Reason: Abdominal Cramping Home Medications: Prenat 115/Iron Fum/Folic/Dss [Pnv-Ferrous Gwuvnkuq-Lqhl-EV] 1 each PO DAILY 11/05/17 Ibuprofen [Motrin 800 mg Tablet] 800 mg PO Q8HP PRN #20 tablet 11/05/19 Results Laboratory Results: WBC 11.5 10^3/uL (4.0-10.5) H 11/04/19 07:30 RBC 3.83 10^6/uL (3.72-5.28) 11/04/19 07:30 Hgb 11.5 g/dL (12.0-15.5) L 11/04/19 07:30 Hct 33.5 % (36.0-47.0) L 11/04/19 07:30 MCV 88 fl (80-97) 11/04/19 07:30 MCH 29.9 pg (27.0-33.4) 11/04/19 07:30 MCHC 34.2 g/dL (32.0-36.0) 11/04/19 07:30 RDW 14.1 % (11.5-14.0) H 11/04/19 07:30 Plt Count 222 10^3/uL (150-450) 11/04/19 07:30 Lymph % (Auto) 25.2 % (13-45) 11/03/19 00:15 [place] % (Auto) 7.5 % (3-13) 11/03/19 00:15 Eos % (Auto) 0.5 % (0-6) 11/03/19 00:15 Baso % (Auto) 0.2 % (0-2) 11/03/19 00:15 Absolute Neuts (auto) 6.7 10^3/uL (1.7-8.2) 11/03/19 00:15 Absolute Lymphs (auto) 2.5 10^3/uL (0.5-4.7) 11/03/19 00:15 Absolute Monos (auto) 0.8 10^3/uL (0.1-1.4) 11/03/19 00:15 Absolute Eos (auto) 0.1 10^3/uL (0.0-0.6) 11/03/19 00:15 Absolute Basos (auto) 0.0 10^3/uL (0.0-0.2) 11/03/19 00:15 Seg Neutrophils % 66.6 % (42-78) 11/03/19 00:15 Urine Color STRAW 11/02/19 23:15 Urine Appearance CLEAR 11/02/19 23:15 Urine pH 6.0 (5.0-9.0) 11/02/19 23:15 Ur Specific [place] 1.008 11/02/19 23:15 Urine Protein NEGATIVE mg/dL (NEGATIVE) 11/02/19 23:15 Urine Glucose (UA) NEGATIVE mg/dL (NEGATIVE) 11/02/19 23:15 Urine Ketones NEGATIVE mg/dL (NEGATIVE) 11/02/19 23:15 Urine Blood NEGATIVE (NEGATIVE) 11/02/19 23:15 Urine Nitrite NEGATIVE (NEGATIVE) 11/02/19 23:15 Urine Bilirubin NEGATIVE (NEGATIVE) 11/02/19 23:15 Urine Urobilinogen NEGATIVE mg/dL (<2.0) 11/02/19 23:15 Ur Leukocyte Esterase NEGATIVE (NEGATIVE) 11/02/19 23:15 Urine Ascorbic Acid NEGATIVE (NEGATIVE) 11/02/19 23:15 Membranes Rupture NEGATIVE (NEGATIVE) 11/02/19 23:25 Urine Opiates Screen NEGATIVE 11/02/19 23:15 Urine Methadone Screen NEGATIVE 11/02/19 23:15 Ur Barbiturates Screen NEGATIVE 11/02/19 23:15 Ur Phencyclidine Scrn NEGATIVE 11/02/19 23:15 Ur Amphetamines Screen NEGATIVE 11/02/19 23:15 U Benzodiazepines Scrn NEGATIVE 11/02/19 23:15 Urine Cocaine Screen NEGATIVE 11/02/19 23:15 U Marijuana (THC) Screen NEGATIVE 11/02/19 23:15 RPR NONREACTIVE (NONREACTIVE) 11/03/19 00:15 Blood Type O POSITIVE 11/03/19 00:15 Antibody Screen NEGATIVE 11/03/19 00:15
== END 2019-11-05 15:18 | disposition home or self-care (01) | DRG 806 ==
LOC: LC 23:09 → LR 11-03 00:08 → 2S 11-03 08:48
PROVIDERS: ADMIT Obstetrics & Gynecology; ATTEND Obstetrics & Gynecology
PROC: 10E0XZZ Delivery of Products of Conception, External Approach (ICD-10-PCS; principal; 2019-11-03)
DX: O76 Abnormality in fetal heart rate and rhythm complicating labor and delivery (principal); D62 Acute posthemorrhagic anemia; Z37.0 Single live birth; O99.02 Anemia complicating childbirth; O99.824 Streptococcus B carrier state complicating childbirth; Z3A.40 40 weeks gestation of pregnancy
CPT/HCPCS: 36415; 80307; 81005; 84112; 85025; 85027; 86592; 86850; 86900; 86901; J2540; J2590; J3490; J7060